=== PATIENT | male | born 1980 | race Caucasian/White ===

== ENCOUNTER 2021-05-21 23:51 | Emergency (ER) | payer OTHER ==
[2021-05-22 02:34] LABS: HEMOGLOBIN 12.7 gm/dl (14.0-17.5); RED BLOOD COUNT 4.2 M/UL (4.20-5.50); WHITE BLOOD COUNT 8.8 K/UL (4.5-11.0)
[2021-05-22 03:43] LABS: BUN/CREATININE RATIO 24 (0-10)
[2021-05-22] MEDS ORDERED: TORADOL 10 MG T10 MG PO (05:03)
== END 2021-05-22 06:26 | disposition home or self-care (01) ==
LOC: ER1 23:51
PROVIDERS: Physician Assistant
DX: M25.561 Pain in right knee (principal); M79.604 Pain in right leg; R79.1 Abnormal coagulation profile; F17.200 Nicotine dependence, unspecified, uncomplicated; X50.9XXA Other and unspecified overexertion or strenuous movements or postures, initial encounter
CPT/HCPCS: 73562; 73590; 73610; 80053; 84550; 85025; 85379; 96372; 96374; 96375; 99283; J1200; J1650; J1885; J2270; J2405